=== PATIENT | female | born 1995 | race Caucasian/White ===

== ENCOUNTER 2016-11-16 07:00 | Inpatient (IN) | payer BC, OTHER ==
[2016-11-16] MEDS ORDERED: ELECTROLYTE-148 SOLN 500 ML IV ONE (07:30)
[2016-11-16] MEDS ORDERED: CITRIC ACID/SODIUM CITRATE 30 ML UNIT-DOSE CUP PO ONE (07:42)
[2016-11-16] MEDS ORDERED: METHYLERGONOVINE MALEATE 0.2 MG/1 ML AMP IM PRN (07:42)
--- NOTE | 2016-11-16 07:51 | HP ---
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: Alzheimer's, CVA, Dementia, Migraine, Multiple Sclerosis, Peripheral Neuropathy, Parkinson's, Seizure, Syncope, TIA, Vertigo, Other Cardiovascular: No: AFIB, Aneurysm, Aortic Insufficiency, Aortic Stenosis, CAD, CHF, Deep Vein Thrombosis, HTN, Hyperlipdemia, MD, Mitral Insufficiency, Mitral Stenosis, Murmur, Pulmonary Hypertension, Other Pulmonary: No: Asthma, Bronchitis, Cancer, COPD, O2 Dependent, Pneumonia, Previously Intubated, Pulmonary Embolus, Pulmonary Fibrosis, Sleep Apnea, Other Gastrointestinal: No: Ascites, Cancer, Constipation, Crohn's Disease, Diverticulitis, Diverticulosis, Esophageal Varices, Gastritis, GERD, GI Bleed, Hemorrhoids, Hiatal Hernia, Inflamatory Bowel Disease, Irritable Bowel Disease, Pancreatitis, Peptic Ulcer Disease, Ulcerative Colitis, Other Hepatobiliary: No: Cirrhosis, Cholelithiasis, Cholecystitis, Choledocholithiasis , Hepatitis A, Hepatitis B, Hepatitis C, Other Renal/: No: Renal Failure, Renal Inusuff, BPH, Cancer, Hematuria, Hemodialysis , Neurogenic Bladder, Renal Calculi, UTI, Other Reproductive: No: Ectopic , Endometriosis, Fibroids, PID, Polycystic Ovary Syndrome, Postmenopausal, Other Heme/Onc: No: Anemia, B12 Deficiency, Bleeding Disorder, Cancer, Current Chemotherapy, Current Radiation Therapy, Hemochromatosis, Hypercoaguable State, Myeloproliferative Synd, Sickle Cell Disease, Sickle Cell Trait, Thrombocytopenia, Other Infectious Disease: No: AIDS, C-Diff, Herpes Zoster, HIV, MRSA, STD's, Tuberculosis, VREF, Other Psych: No: Addictions, Anxiety, Bipolar, Depression, Panic, Psychosis, Schizophrenia, Other Musculoskeletal: No: Bursitis, Chronic low back pain, Hemiparesis, Hemiplegia, Osteoarthritis, Paraplegia, Other Rheumatology: No: Fibromyalgia, Gout, Lupus, Rheumatoid Arthritis, Sarcoidosis, Vasculitis, Other ENT: No: Allergic Rhinitis, Sinusitis, Other Endocrine: No: Kent's Disease, [place]'s Disease, Diabetes Insipidus, Diabetes Mellitus, Hyperparathyroidism, Hyperthyroidism, Hypothyroidism, Osteopenia, SIADH, Other - Past Surgical History Past Surgical History: No: None, AAA Repair, AICD, Amputation, Appendectomy, Arthrosocopy, AV Fistula/Graft, Bariatric Surgery, Breast Biopsy, Bypass, CABG, Carotid Endarterectomy, Cataract Removal, Cholecystectomy, Colectomy, Colonoscopy, Colostomy, Craniotomy, , Cystectomy, Hernia Repair, Hysterectomy, Ileal Conduit, Ileosotomy, Joint Replacement, Kidney Transplant, Laminectomy, Liver Transplant, Mastectomy, Nephrectomy, Oopherectomy, Orchiectomy, Permanent Pacemaker, Prostatectomy, Splenectomy, Stent, Thoracotomy , TURP, Tonsillectomy, Tubal Ligation, Upper Endoscopy, Valve Replacement, Vasectomy, Vein Stripping/Ligation - Alcohol/Substance Use History of Substance Use: denies: None, Cocaine, Heroin, Marijuana, Prescription , Tranquilizers Home Medications - Allergies Allergies/Adverse Reactions: Allergies Allergy/AdvReac Type Severity Reaction Status Date / Time No Known Allergies Allergy Verified 11/16/16 07:47 - Home Medications Home Medications: Ambulatory Orders Pnv95/Ferrous Fumarate/FA [ Caplet] 1 each PO DAILY 11/16/16 Review of Systems - Review of Systems Constitutional: reports: No Symptoms Eyes: reports: No Symptoms HENT: reports: No Symptoms Neck: reports: No Symptoms Cardiovascular: reports: No Symptoms Respiratory: reports: No Symptoms Gastrointestinal: reports: No Symptoms Genitourinary: reports: No Symptoms Breasts: reports: No Symptoms Reported Musculoskeletal: reports: No Symptoms Integumentary: reports: No Symptoms Neurological: reports: No Symptoms Endocrine: reports: No Symptoms Hematology/Lymphatic: reports: No Symptoms Psychiatric: reports: No Symptoms Physical Examination Constitutional: Yes: Well Nourished Eyes: Yes: WNL HENT: Yes: WNL Neck: Yes: WNL Cardiovascular: Yes: WNL Respiratory: Yes: WNL Gastrointestinal: Yes: WNL ...Rectal Exam: Yes: WNL Renal/: Yes: WNL Breast(s): Yes: WNL Musculoskeletal: Yes: WNL Extremities: Yes: WNL Integumentary: Yes: WNL Neurological: Yes: WNL ...Motor Strength: WNL Psychiatric: Yes: WNL Assessment/Plan admit labs will proceed with cs
[2016-11-16] MEDS: ELECTROLYTE-148 SOLN 1,000 ML IV SCH (08:00)
[2016-11-16 08:08] LABS: BASOPHIL 0.6 % (0-2.0); EOSINOPHIL 0.6 % (0-4.5); MCHC 33.7 g/dl (32.0-36.0); MEAN CELL VOLUME 88.9 fl (80-96); MEAN PLT VOLUME 9.6 fl (7.5-11.1); NEUTROPHILS 73.9 % (42.8-82.8); PLATELET COUNT 182 K/MM3 (134-434)
[2016-11-16 08:14] VITALS: BMI 28.7
[2016-11-16 08:19] LABS: INR 1.03 (0.82-1.09); PROTHROMBIN TIME (PATIENT) 11.3 SEC (9.98-11.88)
[2016-11-16 08:22] LABS: ACTIVATED PTT 29.3 SECONDS (26.9-34.4)
[2016-11-16 08:31] LABS: CALCIUM 9.2 mg/dL (8.5-10.1); CREATININE 0.5 mg/dL (0.55-1.02)
[2016-11-16] MEDS ORDERED: OXYTOCIN 20 UNITS in 0.9% NS 1,000 ML IV SCH (08:45)
[2016-11-16] MEDS: OXYTOCIN 20 UNITS in 0.9% NS 1,000 ML IV SCH (09:00)
[2016-11-16] MEDS: FERROUS SO4 325 MG TABLET (FP) PO SCH ×2 (10:02→23:11)
[2016-11-16] MEDS ORDERED: ONDANSETRON 4 MG/2 ML VIAL IVPB PRN (11:08)
[2016-11-16] MEDS ORDERED: ACETAMINOPHEN 1000 MG/100 ML VIAL (NON FORMULARY) IVPB PRN (11:11)
[2016-11-17] MEDS: OXYTOCIN 20 UNITS in 0.9% NS 1,000 ML IV SCH (01:00)
--- NOTE | 2016-11-17 06:38 | PN ---
Post Progress Note - Subjective Subjective: No complaints overnight. Tolerating clears. Denies N/V/SOB/CP. Arroyo removed, adequate UOP. Type of Delivery: Repeat C/S Vital Signs: Vital Signs Temperature 98.8 F 11/17/16 06:00 Pulse Rate 80 11/17/16 06:00 Respiratory Rate 18 11/17/16 06:00 Blood Pressure 99/52 11/17/16 06:00 O2 Sat by Pulse Oximetry (%) Breast Exam: Yes: Soft Uterus: Yes: Fundus Firm, Fundus below umbilicus Incision: Yes: Dressing dry and intact Abdomen/GI: Yes: Abdomen soft Lochia: Yes: Rubra Lochia, amount: Small Extremities: Yes: Calves non-tender Perineum: Yes: Intact Activity: Ambulating - Labs Labs: CBC WBC 11.0 K/mm3 (4.0-10.0) H 11/16/16 07:45 RBC 4.33 M/mm3 (3.60-5.2) 11/16/16 07:45 Hgb 13.0 GM/dL (10.7-15.3) 11/16/16 07:45 Hct 38.5 % (32.4-45.2) 11/16/16 07:45 MCV 88.9 fl (80-96) 11/16/16 07:45 MCHC 33.7 g/dl (32.0-36.0) 11/16/16 07:45 RDW 16.0 % (11.6-15.6) H 11/16/16 07:45 Plt Count 182 K/MM3 (134-434) 11/16/16 07:45 MPV 9.6 fl (7.5-11.1) 11/16/16 07:45 Neutrophils % 73.9 % (42.8-82.8) 11/16/16 07:45 Lymphocytes % 19.8 % (8-40) 11/16/16 07:45 Monocytes % 5.1 % (3.8-10.2) 11/16/16 07:45 Eosinophils % 0.6 % (0-4.5) 11/16/16 07:45 Basophils % 0.6 % (0-2.0) 11/16/16 07:45 Assessment/Plan 23P2 POD#1 s/p R C/S for NRFHT. VSS. AF. -Routine postop care -Encourage ambulation -Incentive spirometer -Advance diet as tolerated -f/u AM CBC -PO pain medication
[2016-11-17 07:32] LABS: BASOPHIL 0.5 % (0-2.0); EOSINOPHIL 0.1 % (0-4.5); MCH 29.9 pg (25.7-33.7); MCHC 34.2 g/dl (32.0-36.0); MEAN CELL VOLUME 87.4 fl (80-96); MEAN PLT VOLUME 9.9 fl (7.5-11.1); NEUTROPHILS 81.3 % (42.8-82.8); PLATELET COUNT 147 K/MM3 (134-434); RDW 15.5 % (11.6-15.6); WHITE BLOOD COUNT 14.3 K/mm3 (4.0-10.0)
[2016-11-17] MEDS ORDERED: BISACODYL 10 MG SUPP.RECT RC PRN (07:42)
[2016-11-17] MEDS: ELECTROLYTE-148 SOLN 1,000 ML IV SCH (07:54)
[2016-11-17] MEDS: DOCUSATE SODIUM 100 MG CAPSULE (FP) PO SCH (09:56)
[2016-11-17] MEDS: FERROUS SO4 325 MG TABLET (FP) PO SCH ×2 (09:56→23:20)
[2016-11-17] MEDS ORDERED: DIPHTH,PERTUSS(ACELL),TET 0.5 ML DISP.SYRIN IM ONE (10:00)
[2016-11-17] MEDS ORDERED: INFLUENZA VACCINE 45 MCG/0.5 ML (MDV 16-17) IM ONE (10:00)
[2016-11-17] MEDS ORDERED: VACCINE 60 MCG/0.5 ML (P/F DISP.SYRIN 16-17) IM ONE (10:00)
[2016-11-17] MEDS: IBUPROFEN 600 MG TABLET (FP) PO PRN ×2 (11:53→20:27)
[2016-11-17] MEDS: oxyCODONE HCL 5 MG TABLET PO PRN ×2 (11:54→20:26)
[2016-11-17] MEDS: SIMETHICONE 80 MG TAB.CHEW (FP) PO PRN ×2 (11:55→20:26)
--- NOTE | 2016-11-17 13:10 | PN ---
Progress Note (short form) - Note Progress Note: Anesthesia postop note 21 y/o F s/p spinal anesthesia for repeat section, duramorph for postop pain management POD#1, vss, aaox3, pain well controlled, ambulating. No anesthesia complications.
[2016-11-18] MEDS: OXYTOCIN 20 UNITS in 0.9% NS 1,000 ML IV SCH (03:58)
[2016-11-18] MEDS: oxyCODONE HCL 5 MG TABLET PO PRN ×4 (04:17→21:31)
[2016-11-18] MEDS: SIMETHICONE 80 MG TAB.CHEW (FP) PO PRN ×4 (04:17→21:31)
[2016-11-18] MEDS: IBUPROFEN 600 MG TABLET (FP) PO PRN ×4 (04:17→21:34)
[2016-11-18] MEDS: FERROUS SO4 325 MG TABLET (FP) PO SCH ×2 (09:22→21:30)
[2016-11-18] MEDS: DOCUSATE SODIUM 100 MG CAPSULE (FP) PO SCH (09:24)
--- NOTE | 2016-11-18 10:53 | PN ---
Post Progress Note - Subjective Subjective: no c/o pain ,scale 3/10 . voiding without difficulty Post Day: 2 Type of Delivery: Repeat C/S Vital Signs: Vital Signs Temperature 97.6 F 11/18/16 08:10 Pulse Rate 83 11/18/16 08:10 Respiratory Rate 18 11/18/16 08:10 Blood Pressure 98/60 11/18/16 08:10 O2 Sat by Pulse Oximetry (%) Breast Exam: Yes: Soft, Other (Breast feeding ). No: Engorged Uterus: Yes: Fundus Firm, Fundus below umbilicus, Non-tender Incision: Yes: Traci intact. No: Redness, Oozing Abdomen/GI: Yes: Abdomen soft (bs active ), Passing flatus, Tolerating PO (diet ). No: Abdominal Distention, Tender Lochia: Yes: Rubra Lochia, amount: Moderate Extremities: Yes: Calves non-tender Perineum: Yes: Intact Activity: Ambulating - Labs Labs: CBC WBC 14.3 K/mm3 (4.0-10.0) H 11/17/16 05:35 RBC 3.95 M/mm3 (3.60-5.2) 11/17/16 05:35 Hgb 11.8 GM/dL (10.7-15.3) 11/17/16 05:35 Hct 34.5 % (32.4-45.2) 11/17/16 05:35 MCV 87.4 fl (80-96) 11/17/16 05:35 MCHC 34.2 g/dl (32.0-36.0) 11/17/16 05:35 RDW 15.5 % (11.6-15.6) 11/17/16 05:35 Plt Count 147 K/MM3 (134-434) 11/17/16 05:35 MPV 9.9 fl (7.5-11.1) 11/17/16 05:35 Neutrophils % 81.3 % (42.8-82.8) 11/17/16 05:35 Lymphocytes % 12.1 % (8-40) D 11/17/16 05:35 Monocytes % 6.0 % (3.8-10.2) 11/17/16 05:35 Eosinophils % 0.1 % (0-4.5) D 11/17/16 05:35 Basophils % 0.5 % (0-2.0) 11/17/16 05:35 Assessment/Plan stable plan ct po care
[2016-11-19 07:25] LABS: BASOPHIL 0.6 % (0-2.0); EOSINOPHIL 3.8 % (0-4.5); MCH 29.9 pg (25.7-33.7); MCHC 33.8 g/dl (32.0-36.0); MEAN CELL VOLUME 88.5 fl (80-96); MEAN PLT VOLUME 9.3 fl (7.5-11.1); NEUTROPHILS 62.1 % (42.8-82.8); PLATELET COUNT 172 K/MM3 (134-434); RDW 15.6 % (11.6-15.6); WHITE BLOOD COUNT 8.2 K/mm3 (4.0-10.0)
[2016-11-19] MEDS: oxyCODONE HCL 5 MG TABLET PO PRN (07:33)
[2016-11-19] MEDS: IBUPROFEN 600 MG TABLET (FP) PO PRN (07:34)
[2016-11-19] MEDS: SIMETHICONE 80 MG TAB.CHEW (FP) PO PRN (07:35)
[2016-11-19 08:38] VITALS: BP 90/56; PULSE 68; TEMP 98.5
--- NOTE | 2016-11-19 09:10 | PN ---
Post Progress Note Post Day: 3 Type of Delivery: Repeat C/S Vital Signs: Vital Signs Temperature 98.5 F 11/19/16 07:30 Pulse Rate 68 11/19/16 07:30 Respiratory Rate 20 11/19/16 07:30 Blood Pressure 90/56 11/19/16 07:30 O2 Sat by Pulse Oximetry (%) Breast Exam: Yes: Soft Uterus: Yes: Fundus Firm Abdomen/GI: Yes: Abdomen soft Lochia: Yes: Rubra Lochia, amount: Small Extremities: Yes: Calves non-tender Perineum: Yes: Intact Activity: Ambulating - Labs Labs: CBC WBC 8.2 K/mm3 (4.0-10.0) D 11/19/16 06:30 RBC 3.78 M/mm3 (3.60-5.2) 11/19/16 06:30 Hgb 11.3 GM/dL (10.7-15.3) 11/19/16 06:30 Hct 33.4 % (32.4-45.2) 11/19/16 06:30 MCV 88.5 fl (80-96) 11/19/16 06:30 MCHC 33.8 g/dl (32.0-36.0) 11/19/16 06:30 RDW 15.6 % (11.6-15.6) 11/19/16 06:30 Plt Count 172 K/MM3 (134-434) 11/19/16 06:30 MPV 9.3 fl (7.5-11.1) 11/19/16 06:30 Neutrophils % 62.1 % (42.8-82.8) D 11/19/16 06:30 Lymphocytes % 26.4 % (8-40) D 11/19/16 06:30 Monocytes % 7.1 % (3.8-10.2) 11/19/16 06:30 Eosinophils % 3.8 % (0-4.5) D 11/19/16 06:30 Basophils % 0.6 % (0-2.0) 11/19/16 06:30 Assessment/Plan as above oob continue care pain control
[2016-11-19] MEDS: FERROUS SO4 325 MG TABLET (FP) PO SCH (09:22)
[2016-11-19] MEDS: DOCUSATE SODIUM 100 MG CAPSULE (FP) PO SCH (09:22)
--- NOTE | 2016-11-19 17:24 | PATH ---
Surgical Pathology Report Patient Name: HERON LOERA Med. Rec. #: [id number] /Age/Gender: 1995 (Age: 21) / F Account: [id number] Location: [facility] OBS/CEO Taken: 11/16/2016 Received: 11/17/2016 Reported: 11/19/2016 Physicians: Zenon Fletcher M.D. Specimen(s) Received PLACENTA Clinical History , C section x1 Nonreassuring FHR Final Diagnosis PLACENTA, DELIVERY: FOCALLY DISRUPTED THIRD TRIMESTER PLACENTA WITH PARAMARGINALLY INSERTED THREE VESSEL UMBILICAL CORD AND UNREMARKABLE PLACENTAL MEMBRANES. Electronically Signed Parrish Clark M.D. Gross Description The specimen is received fresh labeled placenta and is a 461 gram, 16.0 x 15.0 x 2.2 cm. placenta with attached membranes and umbilical cord. The attached membranes are carrillo, translucent with focal opacities and insert marginally. The umbilical cord measures 35 cm. in length and averages 0.9 cm. in diameter. The cord inserts eccentrically, 1 cm. to the nearest margin. No true knots or strictures are identified. Cut surface of the umbilical cord reveals 3 vessels. The surface is villafuerte-blue with minimal fibrin deposition and appropriate caliber vessels. The maternal surface is red-brown with focal defects. Sectioning reveals red-brown, spongy parenchyma. No lesions are identified. Sports Recruiter sections are submitted in three cassettes as follows: 1- membrane rolls and umbilical cord; 2-3- full thickness sections of placenta. /11/18/201611/18/2016
--- NOTE | 2017-03-23 15:41 | DS ---
DATE OF ADMISSION: 11/16/2016 DATE OF DISCHARGE: 11/19/2016 The patient was seen throughout her hospital course, noted to be doing well, no issues or concerns. The patient was subsequently discharged home to be followed up in the office. DAWN PENG M.D. PHIL/[id number]
== END 2016-11-19 15:20 | disposition home or self-care (01) | DRG 766 ==
LOC: JDEL 07:00 → JLDR 07:25 → J3W 09:48
PROVIDERS: ADMIT Obstetrics & Gynecology; ATTEND Obstetrics & Gynecology
PROC: 10D00Z1 Extraction of Products of Conception, Low, Open Approach (ICD-10-PCS; principal; 2016-11-16)
DX: O76 Abnormality in fetal heart rate and rhythm complicating labor and delivery (principal); Z3A.39 39 weeks gestation of pregnancy; Z37.0 Single live birth
CPT/HCPCS: 36415; 80048; 85025; 85610; 85730; 86593; 86850; 86900; 86901; 88307-TC; 90661; 90715; 94010; G0008

== ENCOUNTER → 2017-05-07 | Emergency (ER) | payer BC, OTHER ==
[~2017-05-07] MED LIST: ACETAMINOPHEN 325 MG TABLET (FP) ONE; ACETAMINOPHEN 325 MG TABLET (FP) PO ONE; CEFTRIAXONE 1 GM in DEXTROSE 5%-WATER - 50 ML IVPB ONE; CEFTRIAXONE 50 ML ONE; SODIUM CHLORIDE 2,000 ML IV STA
[2017-05-07 21:38] VITALS: BMI 21.4
--- NOTE | 2017-05-07 21:58 | PDOC ---
History of Present Illness - General Chief Complaint: SIRS, Suspected/Possible Stated Complaint: FEVER Time Seen by Provider: 05/07/17 21:40 History Source: Patient Exam Limitations: No Limitations - History of Present Illness Initial Comments: 05/07/17 21:55 This is a 22 yo woman with no significant PMH who presents to day with 2 days of fevers and chills. She reports dysuria, urinary frequency and burning on urination. Also with headache. She denies cough, sore throat, chest pain, dizziness, blurred vision, nausea, vomiting or diarrhea. She has been around anyone else that has exhibited any symptoms. Timing/Duration: other (2 days) Past History - Travel Traveled outside of the country in the last 30 days: No Close contact w/someone who was outside of country & ill: No - Past Medical History Allergies/Adverse Reactions: Allergies Allergy/AdvReac Type Severity Reaction Status Date / Time No Known Allergies Allergy Verified 05/07/17 21:27 Home Medications: Ambulatory Orders Pnv95/Iron Fum/Folic Acid [ Caplet] 1 each PO DAILY 11/16/16 Cephalexin Monohydrate [Keflex -] 500 mg PO Q6H #40 capsule 05/08/17 Asthma: No Cancer: No Cardiac Disorders: No Diabetes: No HTN: No Seizures: No Thyroid Disease: No Other medical history: Pt denies - Psycho/Social/Smoking Cessation Hx Suicidal Ideation: No Smoking History: Never smoked Have you smoked in the past 12 months: No Information on smoking cessation initiated: No Hx Alcohol Use: No Drug/Substance Use Hx: No Substance Use Type: None Hx Substance Use Treatment: No Review of Systems - Review of Systems Able to Perform ROS?: Yes Is the patient limited Somali proficient: Yes Constitutional: Yes: Chills, Fever, Malaise HEENTM: No: Symptoms Reported Respiratory: No: Symptoms reported Cardiac (ROS): No: Symptoms Reported ABD/GI: No: Symptoms Reported : Yes: Burning, Dysuria, Frequency. No: Flank Pain Musculoskeletal: No: Symptoms Reported Integumentary: No: Symptoms Reported Neurological: No: Symptoms reported *Physical Exam - Vital Signs Last Vital Signs Temp Pulse Resp BP Pulse Ox 104.1 F H 148 H 20 106/76 96 05/07/17 21:27 05/07/17 21:27 05/07/17 21:27 05/07/17 21:27 05/07/17 21:27 Vital Signs Temperature 98.9 F 05/08/17 00:03 Pulse Rate 85 05/08/17 00:03 Respiratory Rate 18 05/08/17 00:03 Blood Pressure 98/61 05/08/17 00:03 O2 Sat by Pulse Oximetry (%) 94 L 05/08/17 00:03 - Physical Exam General Appearance: Yes: Appropriately Dressed. No: Apparent Distress HEENT: positive: BRADLY, Normal ENT Inspection, Pharynx Normal Neck: positive: Trachea midline, Supple Respiratory/Chest: positive: Lungs Clear, Normal Breath Sounds. negative: Respiratory Distress, Accessory Muscle Use Cardiovascular: positive: Regular Rhythm, Regular Rate, S1, S2. negative: Edema , JVD, Murmur Gastrointestinal/Abdominal: positive: Normal Bowel Sounds, Soft. negative: Tender, Organomegaly Musculoskeletal: positive: Normal Inspection. 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 intact, Fully Oriented, Alert, Normal Response, Motor Strength 5/5 Heart Score/ECG Review - ECG Intrepretation Rhythm: Regular Rhythm - [place]: Normal - ECG Impressions Normal ECG: Yes ED Treatment Course - LABORATORY CBC & Chemistry Diagram: 05/07/17 21:55 05/07/17 21:55 - RADIOLOGY Radiology Studies Ordered: Category Date Time Status CHEST PA & LAT [RAD] Stat Radiology 05/07/17 21:52 Ordered - Medications Given in the ED: ED Medications Discontinued Medications Generic Name Dose Route Start Last Admin Trade Name Freq PRN Reason Stop Dose Admin Acetaminophen 650 mg 05/07/17 21:32 05/07/17 21:34 Tylenol - PO 05/07/17 21:33 650 mg ONCE ONE Administration Medical Decision Making - Medical Decision Making 05/07/17 21:58 A/P: This is a 22 yo woman with no significant PMH who presents to day with 2 days of fevers and chills. She reports dysuria, urinary frequency and burning on urination. Also with headache. She denies cough, sore throat, chest pain, dizziness, blurred vision, nausea, vomiting or diarrhea. She has been around anyone else that has exhibited any symptoms. No tenderness over sinuses. No CVAT. Lungs CTAB. DDx: Sepsis likely from UTI - CBC, CMP, Lactate, UA - Blood and urine cx - upreg - CXR - NS 2L bolus - Tylenol given in triage 05/08/17 00:43 Pt currently afebrile. - will discharge on PO abx. *DC/Admit/Observation/Transfer Diagnosis at time of Disposition: UTI (urinary tract infection) Qualifiers: Urinary tract infection type: site unspecified Hematuria presence: without hematuria Qualified Code(s): N39.0 - Urinary tract infection, site not specified - Discharge Dispostion Admit: No - Prescriptions Prescriptions: Cephalexin Monohydrate [Keflex -] 500 mg PO Q6H #40 capsule - Patient Instructions Printed Discharge Instructions: DI for Urinary Tract Infection (UTI) Additional Instructions: Take Keflex 500mg by mouth 4x every day until all the medication is finished. Drink plenty of fluids. Return to ED for worsening pain, pain in your lower back, worsening fevers or any other concerns. Print Language: VINCENTIAN
[2017-05-07 22:22] LABS: BASOPHIL 0.5 % (0-2.0); MCHC 33.5 g/dl (32.0-36.0); MEAN CELL VOLUME 86.6 fl (80-96); MEAN PLT VOLUME 9.8 fl (7.5-11.1); NEUTROPHILS 80.6 % (42.8-82.8); PLATELET COUNT 185 K/MM3 (134-434); RDW 15.1 % (11.6-15.6)
[2017-05-07 22:32] LABS: URINE APPEARANCE CLOUDY; URINE BILIRUBIN NEGATIVE (NEGATIVE); URINE BLOOD 2+ (NEGATIVE); URINE COLOR YELLOW; URINE GLUCOSE (UA) NEGATIVE (NEGATIVE); URINE KETONE 1+ (NEGATIVE); URINE NITRITE NEGATIVE (NEGATIVE); URINE UROBILINOGEN NEGATIVE mg/dL (0.2-1.0)
[2017-05-07 22:39] LABS: URINE LEUK ESTERASE 2+ (NEGATIVE); URINE PROTEIN 1+ (NEGATIVE)
[2017-05-07 22:56] LABS: URINE BACTERIA MODERATE /hpf (NONE SEEN); URINE MUCUS RARE; URINE RBC 60 /hpf (0-3); URINE WBC 497 /hpf (3-5)
[2017-05-07 23:00] LABS: ALBUMIN 3.9 g/dl (3.4-5.0); ANION GAP 11 (8-16); CALCIUM 8.5 mg/dL (8.5-10.1); CO2 22 mmol/L (21-32); CREATININE 0.8 mg/dL (0.55-1.02); GLUCOSE,RANDOM 103 mg/dL (74-106); SGOT/AST 17 U/L (15-37); SGPT/ALT 15 U/L (12-78)
[2017-05-07 23:01] LABS: ALK PHOS 84 U/L (45-117); BILIRUBIN,TOTAL 0.5 mg/dL (0.2-1.0); TOT PROT 7.9 g/dl (6.4-8.2)
[2017-05-08 00:12] VITALS: PULSE 85; TEMP 98.9
--- NOTE | 2017-05-09 18:38 | EKG ---
Test Reason : Blood Pressure : / mmHG Vent. Rate : 103 BPM Atrial Rate : 103 BPM P-R Int : 130 ms QRS Dur : 086 ms QT Int : 344 ms P-R-T Axes : 054 046 -02 degrees QTc Int : 450 ms SINUS TACHYCARDIA T WAVE ABNORMALITY, CONSIDER ANTERIOR ISCHEMIA ABNORMAL ECG NO PREVIOUS ECGS AVAILABLE REPEAT EKG IF CLINICALLY INDICATED Confirmed by PRATIBHA ATKINS MD ([id number]) on 05/09/2017 6:38:15 PM Referred By: Confirmed By:PRATIBHA ATKINS MD
== END | disposition home or self-care (01) ==
LOC: JER 21:02
PROC: 3E0337Z Introduction of Electrolytic and Water Balance Substance into Peripheral Vein, Percutaneous Approach (ICD-10-PCS; principal; 2017-05-07)
PROC: 3E03329 Introduction of Other Anti-infective into Peripheral Vein, Percutaneous Approach (ICD-10-PCS; 2017-05-07)
DX: N39.0 Urinary tract infection, site not specified (principal)
CPT/HCPCS: 36415; 71020-TC; 80053; 81003; 81015; 83605; 84703; 85025; 87040; 87086; 87186; 93005; 93010; 99284-25

== ENCOUNTER 2017-09-29 12:49 | Emergency (ER) | payer BC, OTHER ==
[2017-09-29 12:59] VITALS: BP 107/69; PULSE 89; TEMP 98.6; BMI 22.3
--- NOTE | 2017-09-29 14:47 | PDOC ---
History of Present Illness - General Chief Complaint: Pain Stated Complaint: PAIN Time Seen by Provider: 09/29/17 14:19 History Source: Patient Exam Limitations: No Limitations - History of Present Illness Initial Comments: 09/29/17 14:41 22-year-old female presents with right knee swelling and pain for the past 2 days. Patient states initially started with a pimple to the outer aspect of knee where she squeezed it and then this morning woke up with increased swelling and pain. Patient states able to bend the knee and denies any fever or radiation of pain. Patient denies medical history and states has not taken anything for the above. Patient states there is not actively draining but continues to have swelling and pain along with redness Severity: mild Associated Symptoms: reports: denies symptoms Past History - Travel Traveled outside of the country in the last 30 days: No - Past Medical History Allergies/Adverse Reactions: Allergies Allergy/AdvReac Type Severity Reaction Status Date / Time No Known Allergies Allergy Verified 09/29/17 12:59 Home Medications: Ambulatory Orders Pnv95/Iron Fum/Folic Acid [ Caplet] 1 each PO DAILY 11/16/16 Cephalexin Monohydrate [Keflex -] 500 mg PO Q6H #40 capsule 05/08/17 Asthma: No Cancer: No Cardiac Disorders: No CVA: No COPD: No DVT: No Diabetes: No HTN: No Seizures: No Thyroid Disease: No - Reproductive History LMP Normal: Yes Is Patient Now?: No - Suicide/Smoking/Psychosocial Hx Smoking History: Never smoked Have you smoked in the past 12 months: No Hx Alcohol Use: No Drug/Substance Use Hx: No Substance Use Type: None Hx Substance Use Treatment: No Patient Lives Alone: No Lives with/in: parents Review of Systems - Review of Systems Able to Perform ROS?: Yes Constitutional: No: Symptoms Reported ABD/GI: No: Nausea Musculoskeletal: Yes: Joint Pain Integumentary: Yes: Erythema, Other (swelling) Neurological: No: Symptoms reported Hematologic/Lymphatic: No: Symptoms Reported *Physical Exam - Vital Signs Last Vital Signs Temp Pulse Resp BP Pulse Ox 98.6 F 89 20 107/69 99 09/29/17 12:56 09/29/17 12:56 09/29/17 12:56 09/29/17 12:56 09/29/17 12:56 - Physical Exam General Appearance: Yes: Nourished, Appropriately Dressed. No: Apparent Distress Respiratory/Chest: positive: Lungs Clear, Normal Breath Sounds. negative: Respiratory Distress, Accessory Muscle Use Cardiovascular: positive: Regular Rhythm, Regular Rate. negative: Murmur Extremity: positive: Normal Capillary Refill, Normal Range of Motion. negative : Normal Inspection, Tender Integumentary: positive: Erythema (right knee - diffuse edema and erythema to right patella. Noted slightly raised papule to center of area. No palpable fluctulance. ) Neurologic: positive: Motor Strength 5/5 (ambulatory) Medical Decision Making - Medical Decision Making 09/29/17 14:47 Patient here with right knee swelling pain and redness. Patient on exam had noted diffuse erythema with no palpable fluctuance or increased warmth. Patient also with noted edema generally over the right patella with crusted papule to center. Removed utilizing an 18-gauge needle. Able to express minimal amount of serosanguineous purulent fluid. Specimen sent for wound culture. Patient be discharged home with Bactrim with recommendations to apply warm soaks and take Motrin for discomfort. Patient also recommended if no improvement over the next 2 days to return to the nearest emergency room *DC/Admit/Observation/Transfer Diagnosis at time of Disposition: Cellulitis of knee, right - Discharge Dispostion Disposition: HOME Condition at time of disposition: Good - Referrals - Patient Instructions Printed Discharge Instructions: DI for Skin Abscess Additional Instructions: Please take antibiotic as directed until completed. Apply warm soaks 4x/day x 15 minutes. Take motrin as needed for pain. If symptoms worsen over the next 2 days, please return to the ED immediately. - Post Discharge Activity
== END 2017-09-29 14:54 | disposition home or self-care (01) ==
LOC: JERFT 12:49
DX: L03.115 Cellulitis of right lower limb (principal)
CPT/HCPCS: 87070; 87186; 87205; 99281-25

== ENCOUNTER 2021-01-21 08:45 | Emergency (ER) | payer BC, OTHER ==
[2021-01-21 09:02] VITALS: BP 113/82; PULSE 99; TEMP 99.5; BMI 20.5
[2021-01-22 05:08] LABS: SARS-CoV-2 NAA Not Detected (Not Detected)
== END 2021-01-21 10:55 | disposition home or self-care (01) ==
LOC: JER 08:45
DX: R05 Cough (principal); J06.9 Acute upper respiratory infection, unspecified; Z11.52 Encounter for screening for COVID-19
CPT/HCPCS: 71046-TC-FY; 87880; 99284-25; C9803; U0003; U0005